=== PATIENT | female | born 2000 | race Caucasian/White ===

== ENCOUNTER 2023-04-25 11:34 | Inpatient (IN) ==
[2023-04-25] MEDS ORDERED: OXYTOCIN 30 UNITS/500 ML BAG IV PRN (11:58)
[2023-04-25] MEDS ORDERED: LIDOCAINE 1% LOCAL 20 ML VIAL INFIL PRN (11:58)
[2023-04-25] MEDS ORDERED: DINOPROSTONE 10 MG INSERT PV ONE (11:58)
--- NOTE | 2023-04-25 12:08 | History & Physical Report ---
Date of Service April 25, 2023 Assessment & Plan Admission and Anticipated Discharge Date Admission Date: April 25, 2023 History of Present Illness Chief Complaint: induction of labor Primary Care Provider: Ira Linares MD 23 F P0000 at 40.1 weeks admitted for IOL for post dates. GBS is negative. Allergies Allergy/AdvReac Type Severity Reaction Status Date / Time Sulfa (Sulfonamide Allergy Rash Verified 04/25/23 12:03 Antibiotics) Home Medications Medication Instructions Recorded Confirmed Type vits no.124-ferrous fum 1 tab PO DAILY 04/25/23 04/25/23 History 27 mg iron-folic acid 800 mcg tablet ( Vitamin) sertraline 25 mg tablet (Zoloft) 25 mg PO DAILY 04/25/23 04/25/23 History Patient History Medical History Asthma Monoallelic mutation of PALB2 gene Right humeral fracture metal plates and screws Surgical History H/O wisdom tooth extraction Social History Smoking Status: Never smoker Hx Alcohol Use: No Hx Substance Use: No Preferred Language: Belarusian Communication Ability: Effective Technical Product Manager Required: No Beliefs That Will Affect Care: None marital status: Current Living Situation: Spouse Other Information That Helps Us Care for You: No Feels Safe at Home: Yes Safety Concerns: Feels Safe At This Time 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 Review of Systems All systems reviewed & are unremarkable except as noted in HPI & below Physical Exam Constitutional: WD/WN, vitals as above Eyes: PERRL, conjunctivae normal, anicteric sclerae Respiratory: normal respiratory effort, lungs clear to auscultation Cardiovascular: RRR, no murmur, no edema Gastrointestinal (Abdomen): Inspection/Auscultation: abdomen normal to inspection Musculoskeletal: Extremities: extremities normal to inspection Skin: no rashes, warm and dry Neurologic: patellar DTR's 2+ bilat, sensation intact Psychiatric: A+Ox3, euthymic affect Genitourinary: no vaginal lesions, no adnexal mass OB Exam Abdomen: + fundal height, + vertex and + estimated weight (8-9 lbs.) OB Exam Monitor Tracing: + external FHT monitor used, + external uterine monitor used, + category I and + normal FHT variability Results & Data Vital Signs (Past 12 Hours) Vital Signs Pulse BP 04/25/23 11:47 90 121/70
--- NOTE | 2023-04-25 12:38 | Labor Progress Brief Note ---
Date of Service April 25, 2023 Assessment & Plan Admission and Anticipated Discharge Date Admission Date: April 25, 2023 Physical Exam Genitourinary: OB Exam Monitor Tracing: + external FHT monitor used, + external uterine monitor used and + category I Cervidil 10 mg placed vaginally Results & Data Vital Signs (Past 12 Hours) Vital Signs Temp Pulse Resp BP 04/25/23 12:08 36.6 C 20 04/25/23 11:47 90 121/70
[2023-04-25 13:30] LABS: Hematocrit (blood only) 38.6 % (37.0-47.0); Mean Corpuscular Hgb Conc 33.7 g/dL (32.0-36.0); Mean Platelet Volume 10.4 fL (9.4-12.4); Platelet Count 185 K/uL (130-400); RDW Coefficient of Variation 13.5 % (11.5-14.5); RDW Standard Deviation 42.6 fL (36.4-46.3); Red Blood Count 4.49 M/uL (4.20-5.40)
[2023-04-25] MEDS ORDERED: BUTORPHANOL TARTRATE 1 MG/ML VIAL IV PRN (21:40)
--- NOTE | 2023-04-25 22:02 | Labor Progress Brief Note ---
Date of Service April 25, 2023 Assessment & Plan Admission and Anticipated Discharge Date Admission Date: April 25, 2023 Physical Exam Genitourinary: Manual OB Exam: + cervical dilation fingertip, + cervical effacement 50% and + station high OB Exam Monitor Tracing: + external FHT monitor used, + external uterine monitor used, + category I and + normal FHT variability Cervidil pulled out. Mirza placed with 35 ml saline placed transcervically. Results & Data Vital Signs (Past 12 Hours) Vital Signs Temp Pulse Resp BP 04/25/23 12:08 36.6 C 20 04/25/23 19:01 18 04/25/23 19:01 36.7 C 18 04/25/23 19:01 88 04/25/23 19:01 133/52 L 04/25/23 18:45 36.8 C 04/25/23 18:28 76 04/25/23 18:28 121/82 04/25/23 17:25 18 04/25/23 17:25 18 04/25/23 15:55 75 04/25/23 15:55 128/74 04/25/23 14:15 16 04/25/23 14:15 16 04/25/23 14:37 79 04/25/23 14:37 115/66 04/25/23 13:15 18 04/25/23 13:15 18 04/25/23 11:47 90 121/70
[2023-04-26] MEDS ORDERED: miSOPROStoL 50 MCG TAB PO PRN (00:09)
[2023-04-26] MEDS: LACTATED RINGER'S 1,000 ML IV PRN ×3 (08:46→15:14)
[2023-04-26] MEDS ORDERED: OXYTOCIN 30 UNITS/500 ML BAG IV PRN (08:55)
--- NOTE | 2023-04-26 08:55 | Labor Progress Brief Note ---
Date of Service April 26, 2023 Assessment & Plan (1) : Plan: Induction for post dates Day #2 pt received Cervidil and Mirza bulb Mirza still in place FHR; CAT1 Ctx : Minimal starting Pitocin augmentation Admission and Anticipated Discharge Date Admission Date: April 25, 2023 Results & Data Vital Signs (Past 12 Hours) Vital Signs Temp Pulse Resp BP 04/26/23 07:00 36.8 C 20 04/26/23 07:00 18 04/26/23 07:00 18 04/26/23 07:07 67 113/66 04/26/23 03:40 36.9 C 77 18 112/68 04/26/23 00:04 36.7 C 79 18 118/73
[2023-04-26] MEDS ORDERED: fentaNYL citrate PF 100 MCG/2 ML VIAL ONE (13:49)
[2023-04-26] MEDS ORDERED: ePHEDrine sulfate 50 MG/ML AMP ONE (13:49)
[2023-04-26] MEDS ORDERED: LIDOCAINE 2%/EPINEPHRINE 1:200,000 20 ML PF ONE ×2 (13:50→17:00)
[2023-04-26] MEDS ORDERED: BUPIVACAINE 0.25% PF 30 ML VIAL ONE (13:50)
[2023-04-26] MEDS ORDERED: SODIUM CHLORIDE 0.9% PF INJ 10 ML VIAL ONE (13:50)
[2023-04-26] MEDS ORDERED: fentaNYL 2MCG/ML ROPIVACAINE 1.25MG/ML 100 ML BAG EPI ONE (13:50)
--- NOTE | 2023-04-26 13:58 | Anesthesiology Consultation ---
Date of Service April 26, 2023 Assessment & Plan (1) Encounter for pre-operative examination: Chart Review Chart Review: Patient NOT seen in Pre Admission Testing and Acceptable Risk for Labor Epidural Consults Requested none History Height/Weight Height: 5 ft 9 in Weight: 87.543 kg Allergies Allergy/AdvReac Type Severity Reaction Status Date / Time Sulfa (Sulfonamide Allergy Rash Verified 04/25/23 12:03 Antibiotics) Medications Home Medications Medication Instructions Recorded Confirmed Last Taken vits no.124-ferrous fum 1 tab PO DAILY 04/25/23 04/25/23 04/25/23 27 mg iron-folic acid 800 mcg tablet ( Vitamin) sertraline 25 mg tablet (Zoloft) 25 mg PO DAILY 04/25/23 04/25/23 04/24/23 Active Medications Generic Name Dose Route Start Last Admin Trade Name Freq PRN Reason Stop Dose Admin Lactated Ringer's 1,000 mls @ 125 mls/hr 04/25/23 11:58 04/26/23 13:53 Lr IV 04/27/23 11:57 999 mls/hr .Q8H PRN Infusion L&D Protocol Protocol Oxytocin 30 units in 500 mls @ 8 mls/hr 04/26/23 08:55 04/26/23 12:37 Pitocin IV 04/28/23 08:54 0.48 units/hr .Q24H PRN 8 mls/hr Labor Induction/Augmentation Titration Protocol 0.48 UNITS/HR Misoprostol 50 mcg 04/26/23 00:09 04/26/23 00:23 Misoprostol 50 Mcg Tab PO 05/26/23 00:08 50 mcg Q4 PRN Administration induction Past Medical History Medical History Asthma Monoallelic mutation of PALB2 gene Right humeral fracture metal plates and screws Past Surgical History Surgical History H/O wisdom tooth extraction Social History Smoking Status: Never smoker Hx Alcohol Use: No Hx Substance Use: No substance use type: does not use Physical Exam Vital Signs Last Vital Signs Temp 98.8 F 04/26/23 10:50 Pulse 69 04/26/23 12:33 Resp 16 04/26/23 12:00 BP 122/55 L 04/26/23 12:33 Testing Laboratory Results 04/25/23 12:22
[2023-04-26] MEDS ORDERED: NALOXONE HCL 1 MG in SODIUM CHLORIDE 0.9% 1000ML 1,000 ML IV PRN ×2 (13:59→18:57)
[2023-04-26] MEDS ORDERED: LIDOCAINE 2% MPF LOCAL 5 ML VIAL EPI PRN (13:59)
[2023-04-26] MEDS ORDERED: fentaNYL 2MCG/ML ROPIVACAINE 1.25MG/ML 100 ML BAG EPI PRN (13:59)
[2023-04-26] MEDS ORDERED: BUPIVACAINE 0.25% PF 30 ML VIAL EPI PRN (13:59)
[2023-04-26] MEDS ORDERED: diphenhydrAMINE 50 MG/ML VIAL IV PRN ×3 (13:59→18:57)
[2023-04-26] MEDS ORDERED: ROPIVACAINE 0.5% PF 5 MG/ML 20 ML VIAL EPI PRN (13:59)
[2023-04-26] MEDS ORDERED: SODIUM CHLORIDE 0.9% PF INJ 10 ML VIAL EPI STA (13:59)
[2023-04-26] MEDS ORDERED: fentaNYL citrate PF 100 MCG/2 ML VIAL EPI PRN (13:59)
[2023-04-26] MEDS ORDERED: fentaNYL citrate PF 100 MCG/2 ML VIAL EPI STA (13:59)
[2023-04-26] MEDS ORDERED: NALOXONE HCL 0.4 MG/1 ML VIAL/CARP IV PRN ×2 (13:59→18:57)
[2023-04-26] MEDS ORDERED: ePHEDrine sulfate 50 MG/ML AMP IV PRN ×2 (13:59→18:57)
[2023-04-26] MEDS ORDERED: LIDOCAINE 2%/EPINEPHRINE 1:200,000 20 ML PF EPI STA (13:59)
[2023-04-26] MEDS ORDERED: BUPIVACAINE 0.25% PF 30 ML VIAL EPI STA (13:59)
[2023-04-26] MEDS ORDERED: NALBUPHINE HCL INJ 10 MG/ML AMP IV PRN ×2 (13:59→18:57)
[2023-04-26] MEDS ORDERED: SODIUM CHLORIDE 0.9% PF INJ 10 ML VIAL EPI PRN (13:59)
--- NOTE | 2023-04-26 16:27 | Labor Progress Brief Note ---
Date of Service April 26, 2023 Assessment & Plan (1) : Plan: Pt evaluated for No FH tracing after position change On arrival , Pit was off FHr could not be traced with ext toco VE; 6-7/100/-1 AROM was performed and scalp placed AROM showed bleed tinged fluid FH shows late decel and variables FH is now more like early decels Plan discussed c/sec with pt will monitor Fh for now will consider c/sec if FH becomes non reassuring Admission and Anticipated Discharge Date Admission Date: April 25, 2023 Results & Data Vital Signs (Past 12 Hours) Vital Signs Temp Pulse Resp BP Pulse Ox 04/26/23 07:00 36.8 C 20 04/26/23 16:04 69 99 04/26/23 15:59 98 H 118/64 100 04/26/23 15:54 79 98 04/26/23 15:49 78 97 04/26/23 15:44 75 97 04/26/23 15:45 122 H 107/65 04/26/23 15:39 77 95 04/26/23 15:38 74 94 04/26/23 15:34 75 96 04/26/23 15:29 73 95 04/26/23 15:28 76 118/58 L 04/26/23 15:24 74 96 04/26/23 15:19 78 97 04/26/23 15:14 77 97 04/26/23 15:13 78 124/60 04/26/23 15:09 78 98 04/26/23 15:08 36.8 C 75 18 128/66 04/26/23 15:04 78 138/65 98 04/26/23 14:59 74 96 04/26/23 15:00 73 18 123/64 04/26/23 14:54 70 97 04/26/23 14:53 77 129/60 04/26/23 14:49 72 98 04/26/23 14:13 24 04/26/23 14:13 24 04/26/23 14:48 81 128/63 04/26/23 14:46 77 94 04/26/23 14:44 75 99 04/26/23 14:43 86 132/69 04/26/23 14:35 18 04/26/23 14:35 18 04/26/23 14:39 69 98 04/26/23 14:40 73 18 92 04/26/23 14:38 76 124/69 04/26/23 14:34 70 95 04/26/23 14:32 79 92 04/26/23 14:31 80 134/76 04/26/23 14:29 75 98 04/26/23 14:30 78 16 127/75 04/26/23 14:28 73 123/62 04/26/23 14:25 79 123/58 L 04/26/23 14:24 75 99 04/26/23 14:19 84 130/58 L 100 04/26/23 14:14 91 H 100 04/26/23 14:09 80 100 04/26/23 14:08 86 93 04/26/23 14:04 84 100 04/26/23 13:30 20 04/26/23 13:30 20 04/26/23 14:00 20 04/26/23 14:00 20 04/26/23 14:01 83 L 04/26/23 14:01 88 04/26/23 14:01 77 108/71 04/26/23 13:59 89 99 04/26/23 12:00 16 04/26/23 12:00 16 04/26/23 12:33 69 122/55 L 04/26/23 11:30 16 04/26/23 11:30 16 04/26/23 11:29 73 119/70 04/26/23 11:00 20 04/26/23 11:00 20 04/26/23 10:50 37.1 C 04/26/23 10:51 83 103/57 L 04/26/23 10:30 20 04/26/23 10:30 20 04/26/23 09:30 18 04/26/23 09:30 18 04/26/23 10:00 18 04/26/23 10:00 18 04/26/23 09:00 16 04/26/23 09:00 16 04/26/23 08:45 18 04/26/23 08:45 18 04/26/23 10:11 82 100/56 L 04/26/23 09:18 71 123/76 04/26/23 07:00 18 04/26/23 07:00 18 04/26/23 07:07 67 113/66
[2023-04-26] MEDS ORDERED: TERBUTALINE SULFATE 1 MG/ML VIAL SQ ONE (16:48)
[2023-04-26] MEDS ORDERED: CITRIC ACID/SODIUM CITRATE 15 ML UDC ONE (16:49)
[2023-04-26] MEDS ORDERED: LACTATED RINGER'S 1,000 ML IV SCH ×2 (17:00→18:00)
[2023-04-26] MEDS ORDERED: ONDANSETRON INJ 2 MG/ML 2 ML VIAL ONE (17:00)
[2023-04-26] MEDS ORDERED: ceFAZolin 2000MG 2,000 MG/15 ML SYR IV SCH (17:00)
[2023-04-26] MEDS ORDERED: ceFAZolin 330 MG/ML 1 GM VIAL ONE (17:00)
[2023-04-26] MEDS ORDERED: CITRIC ACID/SODIUM CITRATE 15 ML UDC PO SCH (17:00)
[2023-04-26] MEDS ORDERED: MoRPHine SULFATE PF 1 MG/ML 10 ML AMP/VIAL ONE (17:02)
[2023-04-26] MEDS ORDERED: OXYTOCIN 10 UNITS/ML VIAL ONE (17:19)
[2023-04-26] MEDS ORDERED: miSOPROStoL 200 MCG TAB ONE (17:27)
[2023-04-26] MEDS ORDERED: PHENYLEPHRINE HCL 10 MG/ML VIAL ONE (17:28)
[2023-04-26 17:42] LABS: Base Excess Cord Venous Blood -3.2 mEq/L (-7.7-1.9); Cord Venous Blood HCO3 24 mmol/L (18.4-26.8); Cord Venous Blood PCO2 48 mmHg (30.4-57.2); Cord Venous Blood PO2 30 mmHg (14.1-43.3); O2 Saturation Cord Venous Bld < 60.0 % (<68)
[2023-04-26] MEDS ORDERED: KETOROLAC 30 MG/ML VIAL ONE (17:46)
[2023-04-26] MEDS ORDERED: HYDROCORTISONE ACETATE 25 MG SUPP PR PRN (17:53)
[2023-04-26] MEDS ORDERED: DIPHTHERIA/TETANUS/PERTUSSIS Vaccine (Tdap, Age 7+yrs) 0.5mL SYR/VL IM ONE (17:53)
[2023-04-26] MEDS ORDERED: SENNA 8.6 MG TAB PO PRN (17:53)
[2023-04-26] MEDS ORDERED: diphenhydrAMINE Capsule 25 MG CAP PO PRN (17:53)
[2023-04-26] MEDS ORDERED: MAGNESIUM HYDROXIDE SUSP 30 ML UDC PO PRN (17:53)
[2023-04-26] MEDS ORDERED: ONDANSETRON INJ 2 MG/ML 2 ML VIAL IV PRN ×2 (17:53→18:57)
[2023-04-26] MEDS ORDERED: oxyCODONE/ACETAMINOPHEN 5mg/325mg TAB PO PRN (17:53)
[2023-04-26] MEDS ORDERED: BENZOCAINE 20% AER SPR 82.5 GM CAN EXT PRN (17:53)
[2023-04-26] MEDS ORDERED: PROMETHAZINE HCL 25 MG in SODIUM CHLORIDE 0.9% 50 ML IV PRN (17:53)
--- NOTE | 2023-04-26 17:58 | Operative Report ---
PG Post Operative Report Pre & Post Diagnosis Operation Date: 04/26/23 17:05 <No data on this case meets the specified criteria> I identified the patient and participated in the time-out.: Yes Procedure Operation Date: 04/26/23 17:05 <No data on this case meets the specified criteria> Surgeon Cornelius Abreu MD [employer] Dr Ziegler Estimated Blood Loss 700 Findings Consistent with Post-Op Diagnosis Cephalic presentation with nuchal cord. Uterus tubes and ovaries appear grossly normal Fluids 1000cc Specimens placenta. cord blood and cord gasses Drains none Anesthesia Type Spinal Complications none Indications CAT III tracing Description of Procedure Patient brought to the operating room Prepped and draped in normal sterile fashion in dorsal supine position with a leftward tilt. Time out is performed. Patient is identified by name and date of . Allergy and antibiotics and reviewed and confirmed. Skin check is performed to see if anesthesia is adequate A Pfannenstiel incision is made and carried out to the fascia with a scalpel. Fascia is incised in the midline extended laterally on both sides with Paul scissors. Patricia's were used to grab the superior part of the fascial incision and the rectus abdominis muscle dissected with Paul scissors.. Same procedure was performed on the lower section of the fascia. The rectus muscle is then in the midline and the peritoneum identified, tented up and entered sharply with the Metzenbaum scissors. The peritoneal incision was then extended superiorly and inferiorly with good visualization of the bladder. An Gordon retractor was then inserted to provide better visualization and retraction. Vesicouterine peritoneum was identified, grasped with pickups and entered sharply with Metzenbaum scissors. The incision was then extended laterally and the bladder flap created with Metzenbaum scissors. The lower uterine segment incision was performed in a transverse fashion with a scalpel. Uterine incision was then extended laterally with the bandage scissors. Amniotomy is performed. Amniotic fluid isclear. The 's head was delivered atraumatically. There is nuchal cord which is easily reduced Nose and mouth suctioned with the bulb suction. Delayed cord clamping performed and cord is then clamped and cut and is handed over to the waiting pediatric team. Cord blood and gases obtained The placenta is then removed manually the uterus is exteriorized and cleared of all clots and debris. Uterine incision it repaired with 0-Vicryl in a locking fashion. A second layer of 0-Vicryl is used to obtain excellent hemostasis. Uterus is placed back into the abdominal cavity. . Copious amount of irrigation was used to irrigate the abdomen. Gutters were cleared of all clots and debris . Hemostasis was obtained. The Gordon retractor is removed as well as sponges or instruments in the abdomen. The peritoneum was identified and closed in a running fashion using plain suture. The rectus abdominis muscle was examined to ensure there no bleeding. The rectus abdominis muscle was approximated loosely using plain suture in a [id number] manner. Once again hemostasis is confirmed. The fascia was grasped with [place]'s and closed in a running fashion. Both fascial layers are closed together using 0- Vicryl suture. Subcutaneous space is irrigated and hemostasis was confirmed. Subcutaneous space is approximated with plain suture. Skin is closed with francisco javier. The patient tolerated procedure well sponge just labs needle counts were correct x2 patient is sent to recovery in stable condition I attest to the content of the Intraoperative Record and any orders documented therein. Any exceptions are noted below.
[2023-04-26] MEDS ORDERED: MoRPHine SULFATE PF 1 MG/ML 10 ML AMP/VIAL EPI ONE (18:57)
[2023-04-26] MEDS ORDERED: LACTATED RINGER'S 500 ML IV PRN (18:57)
[2023-04-26] MEDS ORDERED: ACETAMINOPHEN 1,000 MG/100 ML VIAL IV PRN (18:57)
[2023-04-26] MEDS ORDERED: HYDROmorphone INJ 0.5 MG/0.5 ML SYR IV PRN (18:57)
[2023-04-26] MEDS ORDERED: NALOXONE HCL 0.08 MG in SYRINGE 1.8 ML IV PRN (18:57)
--- NOTE | 2023-04-26 18:58 | Anesthesiology Progress Note ---
Date of Service April 26, 2023 Anesthesia Post Procedure Vital Signs Vital Signs: Temp Pulse Resp BP Pulse Ox 04/26/23 07:00 98.2 F 20 04/26/23 18:53 95 04/26/23 18:53 108 H 04/26/23 18:53 113 H 99/57 L 04/26/23 18:48 114 H 98 04/26/23 18:43 106 H 102/55 L 98 04/26/23 18:38 112 H 99 04/26/23 18:33 99 04/26/23 18:33 106 H 04/26/23 18:33 104 H 98/54 L 04/26/23 18:28 115 H 95 04/26/23 18:23 113 H 99/58 L 100 04/26/23 18:18 112 H 100 04/26/23 18:13 108 H 100 04/26/23 18:12 114 H 105/50 L 04/26/23 18:08 107 H 100 04/26/23 18:06 93 H 222/143 H 04/26/23 18:05 84 89 L 04/26/23 18:03 84 100 04/26/23 18:00 176/134 H 04/26/23 17:58 96 H 99 04/26/23 17:53 109 H 97 04/26/23 16:44 83 100 04/26/23 16:43 76 99/51 L 04/26/23 16:42 89 90 04/26/23 16:39 69 100 04/26/23 16:34 71 100 04/26/23 16:29 77 04/26/23 16:29 74 124/73 100 04/26/23 16:24 68 100 04/26/23 16:19 82 100 04/26/23 16:14 80 121/82 100 04/26/23 16:12 82 121/69 04/26/23 16:09 73 99 04/26/23 16:04 69 99 04/26/23 15:59 98 H 118/64 100 04/26/23 15:54 79 98 04/26/23 15:49 78 97 04/26/23 15:44 75 97 04/26/23 15:45 122 H 107/65 04/26/23 15:39 77 95 04/26/23 15:38 74 94 04/26/23 15:34 75 96 04/26/23 15:29 73 95 04/26/23 15:28 76 118/58 L 04/26/23 15:24 74 96 04/26/23 15:19 78 97 04/26/23 15:14 77 97 04/26/23 15:13 78 124/60 04/26/23 15:09 78 98 04/26/23 15:08 98.2 F 75 18 128/66 04/26/23 15:04 78 138/65 98 04/26/23 14:59 74 96 04/26/23 15:00 73 18 123/64 04/26/23 14:54 70 97 04/26/23 14:53 77 129/60 04/26/23 14:49 72 98 04/26/23 14:13 24 04/26/23 14:13 24 04/26/23 14:48 81 128/63 04/26/23 14:46 77 94 04/26/23 14:44 75 99 04/26/23 14:43 86 132/69 04/26/23 14:35 18 04/26/23 14:35 18 04/26/23 14:39 69 98 04/26/23 14:40 73 18 92 04/26/23 14:38 76 124/69 04/26/23 14:34 70 95 04/26/23 14:32 79 92 04/26/23 14:31 80 134/76 04/26/23 14:29 75 98 04/26/23 14:30 78 16 127/75 04/26/23 14:28 73 123/62 04/26/23 14:25 79 123/58 L 04/26/23 14:24 75 99 04/26/23 14:19 84 130/58 L 100 04/26/23 14:14 91 H 100 04/26/23 14:09 80 100 04/26/23 14:08 86 93 04/26/23 14:04 84 100 04/26/23 13:30 20 04/26/23 13:30 20 04/26/23 14:00 20 04/26/23 14:00 20 04/26/23 14:01 83 L 04/26/23 14:01 88 04/26/23 14:01 77 108/71 04/26/23 13:59 89 99 04/26/23 12:00 16 04/26/23 12:00 16 04/26/23 12:33 69 122/55 L 04/26/23 11:30 16 04/26/23 11:30 16 04/26/23 11:29 73 119/70 04/26/23 11:00 20 04/26/23 11:00 20 04/26/23 10:50 98.8 F 04/26/23 10:51 83 103/57 L 04/26/23 10:30 20 04/26/23 10:30 20 04/26/23 09:30 18 04/26/23 09:30 18 04/26/23 10:00 18 04/26/23 10:00 18 04/26/23 09:00 16 04/26/23 09:00 16 04/26/23 08:45 18 04/26/23 08:45 18 04/26/23 10:11 82 100/56 L 04/26/23 09:18 71 123/76 04/26/23 07:00 18 04/26/23 07:00 18 04/26/23 07:07 67 113/66 04/26/23 03:40 98.4 F 77 18 112/68 04/26/23 00:04 98.1 F 79 18 118/73 04/25/23 19:01 18 04/25/23 19:01 98.1 F 18 04/25/23 19:01 88 04/25/23 19:01 133/52 L Pain Intensity Lower Abdomen: Pain Intensity: 5 Transfer of Care Handoff Completed per policy Notes Mental Status: alert / awake / arousable and participated in evaluation Patient Amnestic to Procedure: No Nausea / Vomiting: adequately controlled Pain: adequately controlled Airway Patency, RR, SpO2: stable & adequate BP & HR: stable & adequate Hydration State: stable & adequate Neuraxial Anesthesia: was administered and sensory block is resolving Anesthetic Complications: no major complications apparent and Pt Satisfied with anesthetic care
--- NOTE | 2023-04-26 18:58 | Anesthesia Procedure Note ---
Date of Service April 26, 2023 Anesthesia Post Epidural Note Vital Signs Vital Signs: Temp Pulse Resp BP Pulse Ox 98.2 F 108 H 18 99/57 L 95 04/26/23 15:08 04/26/23 18:53 04/26/23 15:08 04/26/23 18:53 04/26/23 18:53 Pain Intensity Lower Abdomen: Pain Intensity: 5 Notes Mental Status: alert / awake / arousable and participated in evaluation Nausea / Vomiting: adequately controlled Pain: adequately controlled Airway Patency, RR, SpO2: stable & adequate BP & HR: stable & adequate Hydration State: stable & adequate Neuraxial Anesthesia: was administered and sensory block is resolving Anesthetic Complications: no major complications apparent and Pt Satisfied with anesthetic care Epidural: Removed without complications and With tip intact
[2023-04-26] MEDS ORDERED: SODIUM CHLORIDE 0.9% 1000ML 1,000 ML IV SCH (19:00)
[2023-04-26] MEDS ORDERED: NO NARCOTICS OR SEDATIVES SCH (19:00)
[2023-04-26] MEDS ORDERED: DC INTRASPINAL MORPHINE SCH (19:00)
[2023-04-26] MEDS: OXYTOCIN 20 UNITS in LACTATED RINGER'S 1,000 ML IV SCH (19:11)
[2023-04-26] MEDS ORDERED: OXYTOCIN 10 UNITS/ML 10ML VIAL IM ONE (20:58)
[2023-04-26] MEDS: LACTATED RINGER'S 1,000 ML IV SCH (22:37)
[2023-04-26] MEDS: DOCUSATE SODIUM 100 MG CAP PO SCH (23:05)
[2023-04-26] MEDS: SERTRALINE HCL 50 MG TABLET PO SCH (23:05)
[2023-04-26] MEDS: SIMETHICONE 80 MG CHEW PO SCH (23:05)
[2023-04-27] MEDS: KETOROLAC 30 MG/ML VIAL IV PRN ×2 (01:59→10:03)
[2023-04-27] MEDS: LACTATED RINGER'S 1,000 ML IV SCH (03:16)
[2023-04-27] MEDS: OXYTOCIN 20 UNITS in LACTATED RINGER'S 1,000 ML IV SCH (03:34)
[2023-04-27 07:26] LABS: Basophils # (auto) 0.02 K/uL (0-0.2); Basophils % (auto) 0.1 %; Eosinophils # (auto) 0.01 K/uL (0-0.50); Eosinophils % (auto) 0.1 %; Hematocrit (blood only) 34.1 % (37.0-47.0); Hemoglobin 11.9 g/dl (12.0-16.0); Immature Granulocytes # (auto) 0.09 K/uL (0.01-0.20); Immature Granulocytes % (auto) 0.6 %; Lymphocytes # (auto) 1.06 K/uL (1.2-3.4); Lymphocytes % (auto) 6.5 %; Mean Corpuscular Hemoglobin 29.1 pg (25.0-34.0); Mean Corpuscular Hgb Conc 34.9 g/dL (32.0-36.0); Mean Corpuscular Volume 83.4 fL (80.0-100.0); Mean Platelet Volume 10.3 fL (9.4-12.4); Monocytes # (auto) 0.75 K/uL (0.11-0.59); Monocytes % (auto) 4.6 %; Neutrophils # (auto) 14.38 K/uL (1.40-6.50); Neutrophils % (auto) 88.1 %; Platelet Count 146 K/uL (130-400); RDW Coefficient of Variation 13.7 % (11.5-14.5); RDW Standard Deviation 41.9 fL (36.4-46.3); Red Blood Count 4.09 M/uL (4.20-5.40); White Blood Count 16.31 K/ul (4.8-10.8)
[2023-04-27] MEDS: SIMETHICONE 80 MG CHEW PO SCH ×4 (08:27→22:04)
[2023-04-27] MEDS: FERROUS SULFATE 325 MG TAB PO SCH (08:28)
[2023-04-27] MEDS: DOCUSATE SODIUM 100 MG CAP PO SCH ×2 (08:28→20:44)
[2023-04-27] MEDS: PRENATAL VITAMIN 1 TAB PO SCH (08:28)
--- NOTE | 2023-04-27 09:45 | Obstetrical Progress Note ---
Date of Service April 27, 2023 Subjective Ambulation: ambulating normally Voiding: no voiding problems Passing Gas:: Yes Diet Tolerance:: regular diet Lochia:: Small Feeding Type:: breast feeding Current Pain Level(1-10): 0 doing well Physical Exam Constitutional WD/WN, vitals as above Gastrointestinal (Abdomen) Inspection/Auscultation: abdomen normal to inspection incision c/d/i Musculoskeletal Extremities: extremities normal to inspection Skin no rashes, warm and dry Neurologic patellar DTR's 2+ bilat, sensation intact Psychiatric A+Ox3, euthymic affect Results & Data Vital Signs (Past 12 Hours) Vital Signs Temp Pulse Resp BP Pulse Ox O2 Del Method 04/27/23 09:25 18 96 04/27/23 07:15 14 95 04/27/23 08:00 16 94 04/27/23 06:12 18 93 04/27/23 05:10 18 95 04/27/23 04:05 18 96 04/27/23 03:10 18 94 04/27/23 03:00 36.9 C 101 H 18 125/77 96 Room Air 04/27/23 02:17 18 95 04/27/23 00:00 18 95 04/27/23 00:58 18 95 04/26/23 23:00 20 96 04/26/23 22:59 37.6 C H 98 H 20 131/82 96 Room Air Laboratory Results 04/25/23 04/25/23 04/26/23 12:22 Unknown 17:11 WBC 8.20 RBC 4.49 Hgb 13.0 Hct 38.6 MCV 86.0 MCH 29.0 MCHC 33.7 RDW Std Deviation 42.6 RDW Coeff of Ron 13.5 Plt Count 185 MPV 10.4 Immature Gran % (Auto) Neut % (Auto) Lymph % (Auto) [place] % (Auto) Eos % (Auto) Baso % (Auto) Neut # (Auto) Lymph # (Auto) [place] # (Auto) Eos # (Auto) Baso # (Auto) Immature Gran # (Auto) Cord ABG pH Cancelled Cord ABG pCO2 Cancelled Cord ABG pO2 Cancelled Cord ABG HCO3 Cancelled Cord ABG Base Excess Cancelled Cord ABG O2 Sat Cancelled Cord VBG pH Cord VBG pCO2 Cord VBG pO2 Cord VBG HCO3 Cord VBG Base Excess Cord VBG O2 Sat Barometric Pressure Cancelled Blood Gas Comments Cancelled SARS-CoV-2, RNA, NAAT NEGATIVE 04/26/23 04/27/23 17:11 07:01 WBC 16.31 H RBC 4.09 L Hgb 11.9 L Hct 34.1 L MCV 83.4 MCH 29.1 MCHC 34.9 RDW Std Deviation 41.9 RDW Coeff of Orn 13.7 Plt Count 146 MPV 10.3 Immature Gran % (Auto) 0.6 Neut % (Auto) 88.1 Lymph % (Auto) 6.5 [place] % (Auto) 4.6 Eos % (Auto) 0.1 Baso % (Auto) 0.1 Neut # (Auto) 14.38 H Lymph # (Auto) 1.06 L [place] # (Auto) 0.75 H Eos # (Auto) 0.01 Baso # (Auto) 0.02 Immature Gran # (Auto) 0.09 Cord ABG pH Cord ABG pCO2 Cord ABG pO2 Cord ABG HCO3 Cord ABG Base Excess Cord ABG O2 Sat Cord VBG pH 7.30 Cord VBG pCO2 48 Cord VBG pO2 30 Cord VBG HCO3 24 Cord VBG Base Excess -3.2 Cord VBG O2 Sat < 60.0 Barometric Pressure Blood Gas Comments INFANT A SARS-CoV-2, RNA, NAAT
[2023-04-27] MEDS ORDERED: oxyCODONE/ACETAMINOPHEN 5mg/325mg TAB PO PRN (13:00)
[2023-04-27] MEDS ORDERED: PROMETHAZINE HCL 25 MG in SODIUM CHLORIDE 0.9% 50 ML IV PRN (13:00)
[2023-04-27] MEDS ORDERED: diphenhydrAMINE 50 MG/ML VIAL IV PRN (13:00)
[2023-04-27] MEDS ORDERED: diphenhydrAMINE Capsule 25 MG CAP PO PRN (13:00)
[2023-04-27] MEDS: IBUPROFEN 600 MG TAB PO PRN ×3 (13:31→23:45)
[2023-04-27] MEDS ORDERED: bisacodyL 5 MG TABEC PO SCH (20:00)
[2023-04-27] MEDS: ACETAMINOPHEN 325 MG TAB PO PRN (20:44)
[2023-04-27] MEDS: SERTRALINE HCL 50 MG TABLET PO SCH (20:48)
[2023-04-28] MEDS: IBUPROFEN 600 MG TAB PO PRN ×4 (06:14→23:03)
[2023-04-28 07:19] LABS: Hematocrit (blood only) 32.8 % (37.0-47.0); Hemoglobin 11.5 g/dl (12.0-16.0)
[2023-04-28] MEDS: DOCUSATE SODIUM 100 MG CAP PO SCH ×2 (08:55→19:57)
[2023-04-28] MEDS: FERROUS SULFATE 325 MG TAB PO SCH (08:55)
[2023-04-28] MEDS: PRENATAL VITAMIN 1 TAB PO SCH (08:55)
[2023-04-28] MEDS: ACETAMINOPHEN 325 MG TAB PO PRN ×2 (08:55→19:57)
[2023-04-28] MEDS: SIMETHICONE 80 MG CHEW PO SCH ×4 (08:55→19:57)
--- NOTE | 2023-04-28 11:17 | Obstetrical Progress Note ---
Date of Service April 28, 2023 Subjective Ambulation: ambulating normally Voiding: no voiding problems Passing Gas:: Yes Diet Tolerance:: regular diet Lochia:: Small Feeding Type:: breast feeding Current Pain Level(1-10): 0 doing well Physical Exam Constitutional WD/WN, vitals as above Gastrointestinal (Abdomen) Inspection/Auscultation: abdomen normal to inspection Musculoskeletal Extremities: extremities normal to inspection Skin no rashes, warm and dry Neurologic patellar DTR's 2+ bilat, sensation intact Psychiatric A+Ox3, euthymic affect Genitourinary incision c/d/i Results & Data Vital Signs (Past 12 Hours) Vital Signs Temp Pulse Resp BP Pulse Ox O2 Del Method 04/28/23 07:35 36.6 C 71 18 111/75 99 Room Air 04/27/23 23:50 Room Air 04/27/23 23:17 36.8 C 83 18 112/72 97 Room Air Laboratory Results Laboratory Results - last 72 hr 04/25/23 04/25/23 04/26/23 12:22 Unknown 17:11 WBC 8.20 RBC 4.49 Hgb 13.0 Hct 38.6 MCV 86.0 MCH 29.0 MCHC 33.7 RDW Std Deviation 42.6 RDW Coeff of Ron 13.5 Plt Count 185 MPV 10.4 Immature Gran % (Auto) Neut % (Auto) Lymph % (Auto) [place] % (Auto) Eos % (Auto) Baso % (Auto) Neut # (Auto) Lymph # (Auto) [place] # (Auto) Eos # (Auto) Baso # (Auto) Immature Gran # (Auto) Cord ABG pH Cancelled Cord ABG pCO2 Cancelled Cord ABG pO2 Cancelled Cord ABG HCO3 Cancelled Cord ABG Base Excess Cancelled Cord ABG O2 Sat Cancelled Cord VBG pH Cord VBG pCO2 Cord VBG pO2 Cord VBG HCO3 Cord VBG Base Excess Cord VBG O2 Sat Barometric Pressure Cancelled Blood Gas Comments Cancelled SARS-CoV-2, RNA, NAAT NEGATIVE 04/26/23 04/27/23 04/28/23 17:11 07:01 05:58 WBC 16.31 H RBC 4.09 L Hgb 11.9 L 11.5 L Hct 34.1 L 32.8 L MCV 83.4 MCH 29.1 MCHC 34.9 RDW Std Deviation 41.9 RDW Coeff of Ron 13.7 Plt Count 146 MPV 10.3 Immature Gran % (Auto) 0.6 Neut % (Auto) 88.1 Lymph % (Auto) 6.5 [place] % (Auto) 4.6 Eos % (Auto) 0.1 Baso % (Auto) 0.1 Neut # (Auto) 14.38 H Lymph # (Auto) 1.06 L [place] # (Auto) 0.75 H Eos # (Auto) 0.01 Baso # (Auto) 0.02 Immature Gran # (Auto) 0.09 Cord ABG pH Cord ABG pCO2 Cord ABG pO2 Cord ABG HCO3 Cord ABG Base Excess Cord ABG O2 Sat Cord VBG pH 7.30 Cord VBG pCO2 48 Cord VBG pO2 30 Cord VBG HCO3 24 Cord VBG Base Excess -3.2 Cord VBG O2 Sat < 60.0 Barometric Pressure Blood Gas Comments A SARS-CoV-2, RNA, NAAT
--- NOTE | 2023-04-28 11:19 | Obstetrical Progress Note ---
Date of Service April 28, 2023 Subjective Ambulation: ambulating normally Voiding: no voiding problems Diet Tolerance:: regular diet Lochia:: Small Feeding Type:: breast feeding Current Pain Level(1-10): 0 doing well Physical Exam Constitutional WD/WN, vitals as above Gastrointestinal (Abdomen) Inspection/Auscultation: abdomen normal to inspection incision c/d/i Musculoskeletal Extremities: extremities normal to inspection Skin no rashes, warm and dry Neurologic patellar DTR's 2+ bilat, sensation intact Psychiatric A+Ox3, euthymic affect Results & Data Vital Signs (Past 12 Hours) Vital Signs Temp Pulse Resp BP Pulse Ox O2 Del Method 04/28/23 07:35 36.6 C 71 18 111/75 99 Room Air 04/27/23 23:50 Room Air Laboratory Results Laboratory Results - last 72 hr 04/25/23 04/25/23 04/26/23 12:22 Unknown 17:11 WBC 8.20 RBC 4.49 Hgb 13.0 Hct 38.6 MCV 86.0 MCH 29.0 MCHC 33.7 RDW Std Deviation 42.6 RDW Coeff of Ron 13.5 Plt Count 185 MPV 10.4 Immature Gran % (Auto) Neut % (Auto) Lymph % (Auto) [place] % (Auto) Eos % (Auto) Baso % (Auto) Neut # (Auto) Lymph # (Auto) [place] # (Auto) Eos # (Auto) Baso # (Auto) Immature Gran # (Auto) Cord ABG pH Cancelled Cord ABG pCO2 Cancelled Cord ABG pO2 Cancelled Cord ABG HCO3 Cancelled Cord ABG Base Excess Cancelled Cord ABG O2 Sat Cancelled Cord VBG pH Cord VBG pCO2 Cord VBG pO2 Cord VBG HCO3 Cord VBG Base Excess Cord VBG O2 Sat Barometric Pressure Cancelled Blood Gas Comments Cancelled SARS-CoV-2, RNA, NAAT NEGATIVE 04/26/23 04/27/23 04/28/23 17:11 07:01 05:58 WBC 16.31 H RBC 4.09 L Hgb 11.9 L 11.5 L Hct 34.1 L 32.8 L MCV 83.4 MCH 29.1 MCHC 34.9 RDW Std Deviation 41.9 RDW Coeff of Ron 13.7 Plt Count 146 MPV 10.3 Immature Gran % (Auto) 0.6 Neut % (Auto) 88.1 Lymph % (Auto) 6.5 [place] % (Auto) 4.6 Eos % (Auto) 0.1 Baso % (Auto) 0.1 Neut # (Auto) 14.38 H Lymph # (Auto) 1.06 L [place] # (Auto) 0.75 H Eos # (Auto) 0.01 Baso # (Auto) 0.02 Immature Gran # (Auto) 0.09 Cord ABG pH Cord ABG pCO2 Cord ABG pO2 Cord ABG HCO3 Cord ABG Base Excess Cord ABG O2 Sat Cord VBG pH 7.30 Cord VBG pCO2 48 Cord VBG pO2 30 Cord VBG HCO3 24 Cord VBG Base Excess -3.2 Cord VBG O2 Sat < 60.0 Barometric Pressure Blood Gas Comments A SARS-CoV-2, RNA, NAAT
[2023-04-28] MEDS ORDERED: bisacodyL 10 MG SUPP PR PRN (17:53)
[2023-04-28] MEDS: SERTRALINE HCL 50 MG TABLET PO SCH (22:32)
[2023-04-29] MEDS: IBUPROFEN 600 MG TAB PO PRN (04:12)
[2023-04-29] MEDS: ACETAMINOPHEN 325 MG TAB PO PRN (08:20)
[2023-04-29] MEDS: FERROUS SULFATE 325 MG TAB PO SCH (08:21)
[2023-04-29] MEDS: DOCUSATE SODIUM 100 MG CAP PO SCH (08:22)
[2023-04-29] MEDS: PRENATAL VITAMIN 1 TAB PO SCH (08:22)
[2023-04-29] MEDS: SIMETHICONE 80 MG CHEW PO SCH (08:25)
--- NOTE | 2023-04-29 10:56 | Obstetrical Progress Note ---
Date of Service April 29, 2023 Assessment & Plan (1) delivery delivered: POD #3 Pt doing well No complaints Results & Data Vital Signs (Past 12 Hours) Vital Signs Temp Pulse Resp BP Pulse Ox O2 Del Method 04/29/23 10:40 36.5 C 86 22 124/83 04/28/23 23:05 36.4 C L 77 16 113/71 98 Room Air
--- NOTE | 2023-04-29 11:05 | Discharge Summary ---
Date of Service April 29, 2023 Admission HPI Per Admitting Provider 23 F P0000 at 40.1 weeks admitted for IOL for post dates. GBS is negative. Discharge Data Consultations 04/25/23 11:59 Consult Anesthesiology Stat Procedures Performed Operation Date: 04/26/23 17:05 Actual Procedures p Section in LD for live male infant at 1711 - Cornelius Abreu MD Hospital Course (1) delivery delivered: Post op course was unremarkable and pt is discharges home in stable condition. Discharge instructions including medications,diet, activity and follow up appointments are reviewed with pt. Discharge Instructions Post op course was unremarkable and pt is discharges home in stable condition. Discharge instructions including medications,diet, activity and follow up appointments are reviewed with pt.
== END 2023-04-29 12:53 | disposition home or self-care (01) | DRG 788 ==
LOC: 4S1 11:34 → 4E2 04-26 20:16